=== PATIENT | female | born 1995 | race Two or more races ===

== ENCOUNTER 2021-09-18 06:44 | Day surgery (SDC) | payer BC ==
[2021-09-18] MEDS ORDERED: Sodium Chloride 0.9% 10 ML Syringe FLUSH PRN (06:52)
[2021-09-18] MEDS ORDERED: Sodium Chloride 0.9% 20 ML SDV IV PRN (06:52)
[2021-09-18] MEDS ORDERED: ceFAZolin 2 GM in Premix Bag 1 BAG IV ONE (06:52)
[2021-09-18] MEDS ORDERED: Sodium Chloride 0.9% 2.5 ML Syringe FLUSH PRN (06:52)
[2021-09-18] MEDS ORDERED: Indomethacin 25 MG Cap PO SCH (07:00)
[2021-09-18] MEDS ORDERED: Lactated Ringers 1,000 ML IV SCH (07:15)
[2021-09-18] MEDS ORDERED: HYDROmorphone 1 MG/ML Syringe IVPUSH PRN (07:38)
[2021-09-18] MEDS ORDERED: Naloxone 0.4 MG/ML SDV IVPUSH PRN (07:38)
[2021-09-18] MEDS ORDERED: Metoclopramide 10 MG/2 ML SDV IVPUSH PRN (07:38)
[2021-09-18] MEDS ORDERED: Albuterol 0.083% 2.5 MG/3 ML Neb Soln NEB PRN (07:38)
[2021-09-18] MEDS ORDERED: Morphine 2 MG/ML SYRINGE IVPUSH PRN (07:38)
[2021-09-18] MEDS ORDERED: fentaNYL 50 MCG/ML SDV IVPUSH PRN (07:38)
[2021-09-18] MEDS ORDERED: Ondansetron 4 MG/2 ML SDV IVPUSH PRN (07:38)
[2021-09-18] MEDS ORDERED: Lidocaine 2% 5 ML SDV ONE (07:47)
[2021-09-18] MEDS ORDERED: Rocuronium Bromide 50 MG/5 ML Syringe ONE (07:47)
[2021-09-18] MEDS ORDERED: Propofol 200 MG/20 ML SDV ONE (07:48)
[2021-09-18 07:49] LABS: CARBON DIOXIDE,CO2 26.9 mmol/L (21.0-32.0); POTASSIUM,K 3.5 mmol/L (3.5-5.1)
[2021-09-18] MEDS ORDERED: fentaNYL 100 MCG/2 ML SDV ONE (07:54)
[2021-09-18] MEDS ORDERED: ceFAZolin 1 GM Vial ONE (08:21)
[2021-09-18] MEDS ORDERED: Bupivacaine 0.5% 30 ML SDV ONE (08:25)
[2021-09-18] MEDS ORDERED: Phenylephrine HCl In 0.9% NaCl 1 MG/10 ML Vial ONE (08:28)
[2021-09-18] MEDS ORDERED: Acetaminophen/oxyCODONE 325-5 MG Tab PO PRN (09:08)
[2021-09-18] MEDS ORDERED: Acetaminophen 325 MG Tab PO PRN (09:09)
== END 2021-09-18 13:19 | disposition home or self-care (01) ==
LOC: MW.SDS 06:44
PROVIDERS: ATTEND Obstetrics & Gynecology
DX: O30.042 Twin pregnancy, dichorionic/diamniotic, second trimester (principal); O23.592 Infection of other part of genital tract in pregnancy, second trimester; N88.3 Incompetence of cervix uteri; Z3A.21 21 weeks gestation of pregnancy; Z79.82 Long term (current) use of aspirin; Z98.890 Other specified postprocedural states; Z91.018 Allergy to other foods
CPT/HCPCS: 36415; 59320; 80053; 85027; 86850; 86900; 86901; 90384; A9270; J0131; J0690; J3010; J3490; J7120; 00948; J2704; J2790

== ENCOUNTER 2022-10-25 19:09 | Emergency (ER) | payer SELFPAY ==
[2022-10-25 22:07] LABS: BASOPHILS PERCENT AUTO 0.2 % (0.0-1.5); EOSINOPHILS ABSOLUTE AUTO 0.1 K/uL (0.0-0.7); EOSINOPHILS PERCENT AUTO 1.6 % (0.0-7.0); HEMATOCRIT 36.7 % (36.0-46.0); LYMPHOCYTES ABSOLUTE AUTO 2.8 K/uL (0.6-2.4); LYMPHOCYTES PERCENT AUTO 31.7 % (16.0-40.0); MEAN CORPUSCULAR HGB CONC 32.7 g/dL (31.0-37.0); MEAN CORPUSCULAR VOLUME 82.7 fL (80.0-98.0); MONOCYTES ABSOLUTE AUTO 0.7 K/uL (0.0-0.8); MONOCYTES PERCENT AUTO 7.6 % (0.0-15.0); NEUTROPHILS ABSOLUTE AUTO 5.2 K/uL (1.4-5.7); NEUTROPHILS PERCENT AUTO 58.9 % (48.0-80.0); NRBC ABSOLUTE 0 K/uL; PLATELET COUNT,PLT 334 K/uL (150-400); RED BLOOD CELL COUNT 4.44 M/uL (4.30-5.90); WHITE BLOOD CELL COUNT,WBC 8.82 K/uL (4.0-11.0)
[2022-10-25 22:21] LABS: APPEARANCE,URINE CLEAR; BILIRUBIN,URINE NEGATIVE (NEGATIVE); COLOR,URINE YELLOW; GLUCOSE,URINE NEGATIVE (NEGATIVE); KETONES,URINE NEGATIVE (NEGATIVE); LEUKOCYTE ESTERASE,URINE NEGATIVE (NEGATIVE); NITRITE,URINE NEGATIVE (NEGATIVE); OCCULT BLOOD,URINE NEGATIVE (NEGATIVE); PH,URINE 5.5 (5.0-8.0); PROTEIN,URINE NEGATIVE (NEGATIVE); UROBILINOGEN,URINE 0.2 EU/dL (<2.0)
[2022-10-25 22:53] LABS: A/G RATIO 0.8 (0.9-1.6); ALBUMIN 3.5 g/dL (3.4-5.0); BILIRUBIN TOTAL 0.1 mg/dL (0.2-1.0); CALCIUM 9.1 mg/dL (8.5-10.1); CARBON DIOXIDE,CO2 26.8 mmol/L (21.0-32.0); CREATININE 0.8 mg/dL (0.6-1.0); EST CRCL DRUG DOSING (CG) 75.87 mL/min; POTASSIUM,K 3.7 mmol/L (3.5-5.1); PROTEIN TOTAL,TP 7.9 g/dL (6.4-8.2)
== END 2022-10-25 23:33 | disposition home or self-care (01) ==
LOC: MW.ED 19:09
DX: O99.891 Other specified diseases and conditions complicating pregnancy (principal); R10.2 Pelvic and perineal pain; Z3A.09 9 weeks gestation of pregnancy; Z91.018 Allergy to other foods
CPT/HCPCS: 36415; 76817; 76817-26; 80053; 81003; 84702; 85025; 99283; 99284

== ENCOUNTER 2023-06-03 20:40 | Inpatient (IN) | payer BC ==
[2023-06-03] MEDS ORDERED: diphenhydrAMINE 50 MG/ML SDV IVPUSH PRN (21:40)
[2023-06-03] MEDS ORDERED: Sodium Chloride 0.9% 10 ML Syringe FLUSH PRN (21:40)
[2023-06-03] MEDS ORDERED: Bisacodyl 10 MG Supp RECTAL PRN (21:40)
[2023-06-03] MEDS ORDERED: Sodium Chloride 0.9% 20 ML SDV IV PRN (21:40)
[2023-06-03] MEDS ORDERED: Sodium Chloride 0.9% 2.5 ML Syringe FLUSH PRN (21:40)
[2023-06-03] MEDS ORDERED: Lanolin 100% Cream 7 GM Tube TOP PRN (21:40)
[2023-06-03] MEDS ORDERED: Oxytocin 10 Units/1 ML SDV IM PRN (21:40)
[2023-06-03] MEDS ORDERED: Tranexamic Acid IN NACL,ISO-OS 1,000 MG in Premix Bag 1 BAG IV PRN (21:40)
[2023-06-03] MEDS ORDERED: Methylergonovine 0.2 MG/1 ML Amp IM PRN ×2 (21:40)
[2023-06-03] MEDS ORDERED: Misoprostol 200 MCG Tab RECTAL PRN ×2 (21:40)
[2023-06-03] MEDS ORDERED: ceFAZolin 2 GM in Sodium Chloride 0.9% 50 ML IV ONE (21:40)
[2023-06-03] MEDS ORDERED: Ondansetron 4 MG/2 ML SDV IVPUSH PRN ×2 (21:40)
[2023-06-03] MEDS ORDERED: Citric Acid/Sodium Citrate Solution 30 ML Cup PO ONE (21:40)
[2023-06-03] MEDS ORDERED: Oxytocin/0.9 % Sodium Chloride 30 UNIT/500 ML BAG IV SCH ×2 (21:45)
[2023-06-03] MEDS ORDERED: Ketorolac 30 MG/ML SDV IVPUSH SCH (21:45)
[2023-06-03] MEDS: Lactated Ringers 1,000 ML IV SCH (22:08)
[2023-06-03 22:19] LABS: HEMATOCRIT 30.8 % (37.0-47.0); HEMOGLOBIN 9.8 g/dL (12.0-16.0); MEAN CORPUSCULAR HEMOGLOBIN 24.1 pg (28.0-32.0); MEAN CORPUSCULAR HGB CONC 31.8 g/dL (32.0-36.0); MEAN CORPUSCULAR VOLUME 75.7 fL (83.0-99.0); MEAN PLATELET VOLUME 10.2 fL (9.4-12.3); PLATELET COUNT,PLT 239 K/uL (150-400); RED BLOOD CELL COUNT 4.07 M/uL (4.10-5.30); WHITE BLOOD CELL COUNT,WBC 11.52 K/uL (3.9-11.3)
[2023-06-03] MEDS ORDERED: Morphine PF 10 MG/10 ML SDV ONE (22:25)
[2023-06-03] MEDS ORDERED: Ondansetron 4 MG/2 ML SDV ONE (22:25)
[2023-06-03] MEDS ORDERED: Oxytocin 10 Units/1 ML SDV ONE (22:25)
[2023-06-03] MEDS ORDERED: Ropivacaine 0.5% 5 MG/ML 30 ML SDV ONE (22:25)
[2023-06-03] MEDS ORDERED: Bupivacaine 0.25% 30 ML SDV ONE (22:25)
[2023-06-03] MEDS ORDERED: ceFAZolin 1 GM Vial ONE (22:25)
[2023-06-03] MEDS ORDERED: EPINEPHrine 1 MG/1 ML Amp ONE (22:25)
[2023-06-03] MEDS ORDERED: Ketorolac 30 MG/ML SDV ONE (22:25)
[2023-06-03] MEDS ORDERED: fentaNYL 100 MCG/2 ML SDV ONE (22:25)
[2023-06-03] MEDS ORDERED: Phenylephrine HCl In 0.9% NaCl 1 MG/10 ML Syringe ONE ×2 (22:44→23:01)
[2023-06-04] MEDS ORDERED: Ondansetron 4 MG/2 ML SDV IVPUSH PRN ×2 (00:24)
[2023-06-04] MEDS ORDERED: Metoclopramide 10 MG/2 ML SDV IVPUSH PRN (00:24)
[2023-06-04] MEDS ORDERED: droPERidol 5 MG/2 ML SDV IVPUSH PRN (00:24)
[2023-06-04] MEDS ORDERED: ePHEDrine 50 MG/ML SDV IVPUSH PRN (00:24)
[2023-06-04] MEDS ORDERED: Naloxone 0.4 MG/ML SDV IVPUSH PRN (00:24)
[2023-06-04] MEDS ORDERED: HYDROmorphone 1 MG/ML Syringe IVPUSH PRN (00:24)
[2023-06-04] MEDS ORDERED: Morphine 2 MG/ML SYRINGE IVPUSH PRN (00:24)
[2023-06-04] MEDS ORDERED: fentaNYL 50 MCG/ML SDV IVPUSH PRN (00:24)
[2023-06-04] MEDS ORDERED: Albuterol 0.083% 2.5 MG/3 ML Neb Soln NEB PRN (00:24)
[2023-06-04] MEDS ORDERED: fentaNYL 100 MCG/2 ML SDV IVPUSH PRN (00:24)
[2023-06-04] MEDS ORDERED: Acetaminophen/oxyCODONE 325-5 MG Tab PO PRN (00:24)
[2023-06-04] MEDS: Simethicone 80 MG Tab.Chew PO SCH (00:32)
[2023-06-04] MEDS: Lactated Ringers 1,000 ML IV SCH (00:58)
[2023-06-04] MEDS: Acetaminophen 1,000 MG in Premix Bag 1 BAG IV SCH (01:10)
[2023-06-04] MEDS: diphenhydrAMINE 50 MG/ML SDV IVPUSH PRN (02:55)
[2023-06-04] MEDS: Ketorolac 30 MG/ML SDV IVPUSH SCH (05:43)
[2023-06-04 06:10] LABS: HEMOGLOBIN 10.2 g/dL (12.0-16.0); MEAN CORPUSCULAR HGB CONC 30.9 g/dL (32.0-36.0); MEAN CORPUSCULAR VOLUME 77.6 fL (83.0-99.0); MEAN PLATELET VOLUME 10.4 fL (9.4-12.3); PLATELET COUNT,PLT 276 K/uL (150-400); RED BLOOD CELL COUNT 4.25 M/uL (4.10-5.30); WHITE BLOOD CELL COUNT,WBC 19.95 K/uL (3.9-11.3)
[2023-06-04] MEDS: Docusate Sodium 100 MG Cap PO SCH (08:45)
[2023-06-04] MEDS: Prenatal Multivitamin with Calcium/Folic Acid/Iron Tab PO SCH (13:12)
[2023-06-04] MEDS: Ferrous Sulfate 325 MG Tab PO SCH (13:12)
[2023-06-05] MEDS: Acetaminophen/oxyCODONE 325-5 MG Tab PO PRN (00:30)
[2023-06-05] MEDS: Ibuprofen 800 MG Tab PO PRN (08:17)
[2023-06-06] MEDS: Acetaminophen/oxyCODONE 325-5 MG Tab PO PRN (00:01)
== END 2023-06-06 12:56 | disposition home or self-care (01) | DRG 540 ==
LOC: MW.OBCHECK 20:40 → MW.OB 20:40 → MW.OBCHECK 21:59 → MW.OB 22:00 → OBSVTOIN 23:05 → MW.OB 06-04 03:21
PROVIDERS: ADMIT Obstetrics & Gynecology; ATTEND Obstetrics & Gynecology
PROC: 10D00Z1 Extraction of Products of Conception, Low, Open Approach (ICD-10-PCS; principal; 2023-06-03 22:30)
DX: O34.211 Maternal care for low transverse scar from previous cesarean delivery (principal); O99.284 Endocrine, nutritional and metabolic diseases complicating childbirth; E28.2 Polycystic ovarian syndrome; O99.02 Anemia complicating childbirth; Z3A.37 37 weeks gestation of pregnancy; Z37.0 Single live birth
CPT/HCPCS: 01961; 36415; 59025; 59514; 64488; 85027; 86592; 86850; 86900; 86901; A9270-GY; J0131; J0171; J0665; J0690; J1100; J1200; J1885; J2274; J2371; J2405; J2590; J2795; J3010; J7120

== ENCOUNTER 2023-06-16 20:17 | Inpatient (IN) | payer BC ==
[2023-06-16] MEDS: Sodium Chloride 0.9% 1,000 ML IV ONE (20:36)
[2023-06-16 20:41] LABS: BASOPHILS ABSOLUTE AUTO 0.03 K/uL (0.00-0.20); BASOPHILS PERCENT AUTO 0.3 % (0.0-1.0); EOSINOPHILS ABSOLUTE AUTO 0.11 K/uL (0.00-0.45); HEMOGLOBIN 12.4 g/dL (12.0-16.0); IMMATURE GRAN ABSOLUTE AUTO 0.04 K/uL (0.00-0.05); IMMATURE GRAN PERCENT AUTO 0.4 % (0.0-0.4); LYMPHOCYTES ABSOLUTE AUTO 2.34 K/uL (1.00-4.80); LYMPHOCYTES PERCENT AUTO 22.2 % (24.0-44.0); MEAN CORPUSCULAR HEMOGLOBIN 24.4 pg (28.0-32.0); MEAN CORPUSCULAR HGB CONC 31.8 g/dL (32.0-36.0); MEAN CORPUSCULAR VOLUME 76.8 fL (83.0-99.0); MEAN PLATELET VOLUME 10.1 fL (9.4-12.3); MONOCYTES ABSOLUTE AUTO 0.58 K/uL (0.00-0.80); MONOCYTES PERCENT AUTO 5.5 % (0.0-8.0); NEUTROPHILS ABSOLUTE AUTO 7.43 K/uL (1.80-7.70); NEUTROPHILS PERCENT AUTO 70.6 % (41.0-71.0); PLATELET COUNT,PLT 368 K/uL (150-400); RED BLOOD CELL COUNT 5.08 M/uL (4.10-5.30); WHITE BLOOD CELL COUNT,WBC 10.53 K/uL (3.9-11.3)
[2023-06-16 20:57] LABS: INR 1.05 (0.86-1.11); PTT,PARTIAL THROMBOPLSTIN TIME 24.5 SEC (23.9-30.7)
[2023-06-16 21:04] LABS: A/G RATIO 0.6 (0.9-1.6); ALBUMIN 3.1 g/dL (3.4-5.0); BILIRUBIN TOTAL 0.3 mg/dL (0.2-1.0); CALCIUM 9.1 mg/dL (8.5-10.1); CARBON DIOXIDE,CO2 26.1 mmol/L (21.0-32.0); CREATININE 0.9 mg/dL (0.6-1.0); EST CRCL DRUG DOSING (CG) 74.26 mL/min; MAGNESIUM 1.8 mg/dL (1.8-2.4); POTASSIUM,K 3.8 mmol/L (3.5-5.1)
[2023-06-16] MEDS: Tranexamic Acid 1,000 MG in Sodium Chloride 0.9% 100 ML IV ONE (21:25)
[2023-06-16] MEDS: Morphine 4 MG/ML Syringe IVPUSH ONE (21:26)
[2023-06-16] MEDS: Ondansetron 4 MG/2 ML SDV IVPUSH ONE (21:26)
[2023-06-16 21:57] LABS: BASOPHILS ABSOLUTE AUTO 0.06 K/uL (0.00-0.20); BASOPHILS PERCENT AUTO 0.3 % (0.0-1.0); EOSINOPHILS ABSOLUTE AUTO 0.09 K/uL (0.00-0.45); EOSINOPHILS PERCENT AUTO 0.4 % (0.0-6.0); HEMATOCRIT 33.6 % (37.0-47.0); HEMOGLOBIN 10.4 g/dL (12.0-16.0); IMMATURE GRAN ABSOLUTE AUTO 0.12 K/uL (0.00-0.05); IMMATURE GRAN PERCENT AUTO 0.5 % (0.0-0.4); LYMPHOCYTES ABSOLUTE AUTO 2.38 K/uL (1.00-4.80); MEAN CORPUSCULAR HEMOGLOBIN 24.4 pg (28.0-32.0); MEAN CORPUSCULAR VOLUME 78.9 fL (83.0-99.0); MONOCYTES ABSOLUTE AUTO 1.08 K/uL (0.00-0.80); MONOCYTES PERCENT AUTO 4.6 % (0.0-8.0); NEUTROPHILS ABSOLUTE AUTO 19.97 K/uL (1.80-7.70); NEUTROPHILS PERCENT AUTO 84.2 % (41.0-71.0); PLATELET COUNT,PLT 410 K/uL (150-400); RED BLOOD CELL COUNT 4.26 M/uL (4.10-5.30)
[2023-06-16] MEDS: Methylergonovine 0.2 MG/1 ML Amp IM STA (22:01)
[2023-06-16] MEDS: Lactated Ringers 1,000 ML IV STA (22:01)
[2023-06-16] MEDS: Oxytocin 10 Units/1 ML SDV IV ONE (22:01)
[2023-06-16] MEDS ORDERED: propofoL 50 ML ONE (22:56)
[2023-06-16] MEDS ORDERED: fentaNYL 250 MCG/5 ML SDV ONE (22:58)
[2023-06-16] MEDS ORDERED: Misoprostol 200 MCG Tab ONE (23:43)
[2023-06-16] MEDS ORDERED: Methylergonovine 0.2 MG/1 ML Amp ONE (23:44)
[2023-06-16] MEDS ORDERED: Ondansetron 4 MG/2 ML SDV ONE (23:59)
[2023-06-16] MEDS ORDERED: Sugammadex Sodium 200 MG/2 ML VIAL IV ONE (23:59)
[2023-06-16] MEDS ORDERED: Rocuronium Bromide 50 MG/5 ML Syringe ONE (23:59)
[2023-06-16] MEDS ORDERED: Succinylcholine/Sod PF 100 MG/5 ML SYRINGE IV ONE (23:59)
[2023-06-17] MEDS ORDERED: ceFAZolin 2 GM Vial ONE (00:02)
[2023-06-17] MEDS ORDERED: Morphine 4 MG/ML Syringe IVPUSH PRN (01:15)
[2023-06-17] MEDS ORDERED: Ondansetron 4 MG/2 ML SDV IVPUSH PRN (01:15)
[2023-06-17] MEDS ORDERED: Promethazine 25 MG/ML SDV IM PRN (01:15)
[2023-06-17] MEDS ORDERED: Acetaminophen/oxyCODONE 325-5 MG Tab PO PRN ×2 (01:15)
[2023-06-17] MEDS: Gentamicin Pediatric 10 MG/ML 2 ML SDV IV SCH (02:13)
[2023-06-17] MEDS: Ketorolac 30 MG/ML SDV IVPUSH ONE (02:20)
[2023-06-17] MEDS: Lactated Ringers 1,000 ML IV ONE (03:01)
[2023-06-17] MEDS: HYDROmorphone 1 MG/ML Syringe ONE (03:01)
[2023-06-17] MEDS: Misoprostol 50 MCG (1/2 of 100 MCG) Tab RECTAL ONE (03:01)
[2023-06-17] MEDS: Oxytocin 10 Units/1 ML SDV IV ONE (03:01)
[2023-06-17] MEDS: Methylergonovine 0.2 MG/1 ML Amp IM STA (03:01)
[2023-06-17] MEDS: diphenhydrAMINE 50 MG Cap PO SCH (03:41)
[2023-06-17] MEDS: Clindamycin Phosphate in D5W 600 MG in Premix Bag 1 BAG IV SCH (03:41)
[2023-06-17 06:09] LABS: BASOPHILS ABSOLUTE AUTO 0.04 K/uL (0.00-0.20); BASOPHILS PERCENT AUTO 0.3 % (0.0-1.0); EOSINOPHILS PERCENT AUTO 0.7 % (0.0-6.0); HEMOGLOBIN 10.9 g/dL (12.0-16.0); IMMATURE GRAN ABSOLUTE AUTO 0.06 K/uL (0.00-0.05); IMMATURE GRAN PERCENT AUTO 0.4 % (0.0-0.4); LYMPHOCYTES ABSOLUTE AUTO 2.97 K/uL (1.00-4.80); LYMPHOCYTES PERCENT AUTO 21.1 % (24.0-44.0); MEAN CORPUSCULAR HEMOGLOBIN 25.7 pg (28.0-32.0); MEAN CORPUSCULAR HGB CONC 32.1 g/dL (32.0-36.0); MEAN CORPUSCULAR VOLUME 80.2 fL (83.0-99.0); MEAN PLATELET VOLUME 10.3 fL (9.4-12.3); MONOCYTES ABSOLUTE AUTO 0.82 K/uL (0.00-0.80); MONOCYTES PERCENT AUTO 5.8 % (0.0-8.0); NEUTROPHILS ABSOLUTE AUTO 10.11 K/uL (1.80-7.70); NEUTROPHILS PERCENT AUTO 71.7 % (41.0-71.0); PLATELET COUNT,PLT 245 K/uL (150-400); RED BLOOD CELL COUNT 4.24 M/uL (4.10-5.30)
[2023-06-17 06:25] LABS: CALCIUM 7.8 mg/dL (8.5-10.1); CARBON DIOXIDE,CO2 25.4 mmol/L (21.0-32.0); CREATININE 0.8 mg/dL (0.6-1.0); EST CRCL DRUG DOSING (CG) 83.54 mL/min; POTASSIUM,K 4.2 mmol/L (3.5-5.1)
[2023-06-17] MEDS: Acetaminophen/oxyCODONE 325-5 MG Tab PO PRN (09:13)
[2023-06-17] MEDS: Ketorolac 30 MG/ML SDV IVPUSH PRN (10:26)
[2023-06-17 15:41] LABS: HEMATOCRIT 32.1 % (37.0-47.0); HEMOGLOBIN 10.4 g/dL (12.0-16.0); MEAN CORPUSCULAR HEMOGLOBIN 25.6 pg (28.0-32.0); MEAN CORPUSCULAR HGB CONC 32.4 g/dL (32.0-36.0); MEAN CORPUSCULAR VOLUME 79.1 fL (83.0-99.0); PLATELET COUNT,PLT 226 K/uL (150-400); RED BLOOD CELL COUNT 4.06 M/uL (4.10-5.30); WHITE BLOOD CELL COUNT,WBC 11.01 K/uL (3.9-11.3)
== END 2023-06-17 18:40 | disposition home or self-care (01) | DRG 548 ==
LOC: MW.ED 20:17 → MW.SDS 23:32 → MW.MS 06-17 01:34
PROVIDERS: ADMIT Obstetrics & Gynecology; ATTEND Obstetrics & Gynecology
PROC: 0W3R7ZZ Control Bleeding in Genitourinary Tract, Via Natural or Artificial Opening (ICD-10-PCS; principal; 2023-06-17)
PROC: 10D07Z8 Extraction of Products of Conception, Other, Via Natural or Artificial Opening (ICD-10-PCS; 2023-06-17)
PROC: 30233N1 Transfusion of Nonautologous Red Blood Cells into Peripheral Vein, Percutaneous Approach (ICD-10-PCS; 2023-06-17)
DX: O72.1 Other immediate postpartum hemorrhage (principal); O90.81 Anemia of the puerperium; D62 Acute posthemorrhagic anemia; Z91.018 Allergy to other foods
CPT/HCPCS: 36415; 36430; 76856; 76856-26; 76857; 76857-26; 80048; 80053; 83735; 85025; 85027; 85610; 85730; 86850; 86900; 86901; 86920; 96361; 96365; 96372; 96375; 99285-25; 99291; A9270-GY; J0330; J0690; J0736; J1170; J1580; J1885; J2210; J2270; J2405; J2590; J2704; J3010; J3490; J7030; J7120; P9016